=== PATIENT | female | born 1980 ===

== ENCOUNTER 2018-01-30 18:46 | Emergency (ER) | payer OTHER ==
[2018-01-30 18:56] VITALS: BMI 27.2
[2018-01-30 18:59] VITALS: O2SAT 99
[2018-01-30] MEDS ORDERED: Sodium Chloride 0.9% 1,000 ML IV ONE (19:25)
--- NOTE | 2018-01-30 19:25 | C.PDOC ---
History Of Present Illness Pt presents with diarrhea, greater than 10 a ay since yesterday. No f/c/v some nausea. decreased po intake., feels weak. Time Seen by Provider: 01/30/18 19:24 Chief Complaint (Nursing): GI Problem History Per: Patient History/Exam Limitations: no limitations Onset/Duration Of Symptoms: Days Current Symptoms Are (Timing): Still Present Context: Other Severity: Moderate Pain Scale Rating Of: 4 Location Of Pain/Discomfort: Diffuse Radiation Of Pain To:: None Quality Of Discomfort: Cramping Associated Symptoms: Chills, Diarrhea. denies: Fever Exacerbating Factors: Food Alleviating Factors: None Last Bowel Movement: Today Recent travel outside of the [place]: No Additional History Per: Patient Abnormal Vaginal Bleeding: No Past Medical History Reviewed: Historical Data, Nursing Documentation, Vital Signs Vital Signs: Last Vital Signs Temp 97.4 F L 01/30/18 20:38 Pulse 90 01/30/18 20:38 Resp 20 01/30/18 20:38 BP 119/77 01/30/18 20:38 Pulse Ox 99 01/30/18 20:38 Family History: States: No Known Family Hx - Social History Hx Alcohol Use: Yes Hx Substance Use: No - Immunization History Hx Tetanus Toxoid Vaccination: Yes Hx Influenza Vaccination: No Hx Pneumococcal Vaccination: Yes Review Of Systems Constitutional: Negative for: Fever, Chills Cardiovascular: Negative for: Chest Pain Respiratory: Negative for: Shortness of Breath Gastrointestinal: Positive for: Nausea, Abdominal Pain, Diarrhea. Negative for : Vomiting Genitourinary: Negative for: Dysuria Musculoskeletal: Negative for: Back Pain Skin: Negative for: Rash Neurological: Negative for: Weakness Psych: Negative for: Anxiety Physical Exam - Physical Exam Appears: Non-toxic, No Acute Distress Skin: Warm, Dry Head: Normacephalic Eye(s): bilateral: Normal Inspection Oral Mucosa: Dry Neck: Supple Chest: Symmetrical Cardiovascular: Rhythm Regular Respiratory: No Rales, No Rhonchi, No Wheezing Gastrointestinal/Abdominal: Soft, Tenderness (mild), No Distention Back: Normal Inspection Extremity: Normal ROM Extremity: Bilateral: Atraumatic Pulses: Left Dorsalis Pedis: Normal, Right Dorsalis Pedis: Normal Neurological/Psych: Oriented x3 Gait: Steady ED Course And Treatment - Laboratory Results Result Diagrams: 01/30/18 19:30 01/30/18 19:30 O2 Sat by Pulse Oximetry: 99 Pulse Ox Interpretation: Normal Disposition Counseled Patient/Family Regarding: Studies Performed, Diagnosis, Need For Followup, Rx Given - Disposition Referrals: [facility] [Outside] [facility] [Outside] Disposition: HOME/ ROUTINE Disposition Time: 19:24 Condition: FAIR Additional Instructions: May use Kaopectate for the diarrhea Prescriptions: Ondansetron ODT [Zofran ODT] 1 odt PO BID PRN #6 odt PRN Reason: Nausea/Vomiting Instructions: Diarrhea in Adolescents and Adults, Dehydration, Adult (DC) Forms: [employer] (Georgian) Print Language: BULGARIAN - Clinical Impression Clinical Impression: Diarrhea, Abdominal pain
[2018-01-30 19:35] LABS: BASO # 0.1 K/uL (0.0-0.2); BASO % 1.9 % (0.0-2.0); EOS # 0.3 K/uL (0.0-0.7); EOS % 3.4 % (0.0-4.0); HEMOGLOBIN 14.1 g/dL (11.0-16.0); LYMPH # 1.5 K/uL (1.0-4.3); LYMPH % 18.3 % (20.0-40.0); MEAN CELL VOLUME 85.1 fL (81.0-99.0); MEAN CORPUSCULAR HEMOGLOBIN 28.8 pg (27.0-31.0); MEAN CORPUSCULAR HGB CONC 33.8 g/dL (33.0-37.0); MEAN PLATELET VOLUME 9.1 fL (7.2-11.7); MONO # 0.6 K/uL (0.0-0.8); MONO % 8.1 % (0.0-10.0); NEUT # 5.4 K/uL (1.8-7.0); NEUT % 68.3 % (50.0-75.0); NRBC % 0.1 % (0.0-2.0); RBC 4.9 Mil/uL (3.80-5.20); WHITE BLOOD COUNT 7.9 K/uL (4.8-10.8)
[2018-01-30] MEDS ORDERED: Sodium Chloride 0.9% 1,000 ML ONE (19:36)
[2018-01-30 19:37] LABS: HCG,QUALITATIVE URINE NEGATIVE (NEGATIVE)
[2018-01-30 19:46] LABS: ALB/GLOB RATIO 1.1 (1.0-2.1); ALBUMIN 4.3 g/dL (3.5-5.0); ALT/SGPT 39 U/L (9-52); AST/SGOT 42 U/L (14-36); BLOOD UREA NITROGEN 4 mg/dL (7-17); CALCIUM 8.1 mg/dl (8.6-10.4); GFR AFRICAN-AMERICAN > 60; GFR NON-AFRICAN AMERICAN > 60; LIPASE 59 U/L (23-300); SQUAMOUS EPITHIAL 2 /hpf (0-5); URINE BILIRUBIN NEGATIVE (NEGATIVE); URINE BLOOD NEGATIVE (NEGATIVE); URINE GLUCOSE (UA) NORMAL (Normal); URINE PROTEIN NEGATIVE (NEGATIVE); URINE UROBILINOGEN NORMAL mg/dL (0.2-1.0)
[2018-01-30 19:49] LABS: URINE CLARITY Clear (Clear); URINE COLOR STRAW (YELLOW); URINE LEUKOCYTE ESTERASE NEGATIVE Leu/uL (Negative)
[2018-01-30] MEDS ORDERED: Potassium Chloride 10 mEq ER Tab PO STA (20:24)
[2018-01-30] MEDS ORDERED: Potassium Chloride 20 mEq ER Tab PO ONE (20:27)
[2018-01-30 20:39] VITALS: BP 119/77; PULSE 90; RESP 20; TEMP 97.4
== END 2018-01-30 21:34 | disposition home or self-care (01) ==
LOC: C.ER 18:46
DX: R19.7 Diarrhea, unspecified (principal); R10.9 Unspecified abdominal pain
CPT/HCPCS: 80053; 81001; 83690; 84703; 85025; 96361; 96374; 96375; 99284; J2405; J7040